=== PATIENT | male | born 1950 | race Caucasian/White ===

== ENCOUNTER 2023-03-14 12:49 | Emergency (ER) | payer MEDICARE, BC ==
[~2023-03-14] VITALS: Ht 182.9 cm; Wt 99.8 kg
[2023-03-14 13:21] LABS: BASOPHILS 0.9 % (0-2); EOSINOPHILS 2.7 % (0-6); HEMATOCRIT 39.7 % (35.0-50.0); HEMOGLOBIN 13.7 g/dL (12.0-18.0); LYMPHOCYTES 26.8 % (24-44); MCH 30.8 (27-36); MCHC 34.6 g/dl (30-36); MCV 89.2 fl (81-99); MONOCYTES 9.5 % (0-12); NEUTROPHILS 60.1 % (39-80); PLATELET COUNT 196 K/uL (140-440); RBC 4.45 M/ul (4.3-5.7); RDW 14.8 (10.5-15.0)
[2023-03-14 13:31] LABS: ALBUMIN 4.1 g/dL (3.4-5.0); ALBUMIN/GLOBULIN RATIO 1.37 (1.1-2.4); ANION GAP 13.7 (7-21); BILIRUBIN, TOTAL 0.7 ng/dL (0.2-1.0); BUN/CREATININE RATIO 29.24 (6.0-28.6); CALCIUM 8.7 mg/dL (8.5-10.1); CREATININE, SERUM 1.06 mg/dL (0.70-1.30); POTASSIUM 3.7 mmol/L (3.5-5.1); PROTEIN, TOTAL 7.1 g/dL (6.4-8.2)
[2023-03-14 15:25] VITALS: BP 135/78
--- NOTE | 2023-03-14 21:33 | EKG ---
[facility] [address] [place] [address] Signed Sinus rhythm with 1st degree AV block Incomplete left bundle branch block Minimal voltage criteria for LVH, may be normal variant ( Christmas product ) Borderline ECG No previous ECGs available Confirmed by Verónica Del Real MD () on 03/14/2023 9:33:27 PM Electronically Signed By: VERÓNICA DEL REAL MD 03/14/232132 PATIENT NAME: DO MAURO AYO Electrocardiogram DATE OF : 50 PHYSICIAN: VERÓNICA DEL REAL MD REPORT #: [id number] REPORT IS CONFIDENTIAL AND NOT TO BE RELEASED WITHOUT AUTHORIZATION
== END 2023-03-14 15:25 | disposition home or self-care (01) ==
LOC: ED 12:49
PROVIDERS: Emergency Medicine
DX: R53.1 Weakness (principal); E86.0 Dehydration; I10 Essential (primary) hypertension; E11.9 Type 2 diabetes mellitus without complications; Z95.5 Presence of coronary angioplasty implant and graft
CPT/HCPCS: 36415; 80053; 84484; 85025; 93005; 93010; 99284-25